=== PATIENT | female | born 1980 | race Caucasian/White ===

== ENCOUNTER → 2023-09-20 | Outpatient (CLI) | payer BC, SELFPAY ==
[2023-09-20 12:55] LABS: ALB/GLOB Ratio 0.8 RATIO (0.9-2.4); AST(SGOT) 108 U/L (15-37); Alanine Aminotransfer ALT/SGPT 81 U/L (13-56); Albumin, Serum 3.3 g/dL (3.2-5.0); Alkaline Phosphatase 151 U/L (45-117); Anion Gap 10 (5-15); BUN 10 mg/dL (7-18); BUN/Creat Ratio 11.9 RATIO (10-20); Calcium,Total 8.7 mg/dL (8.5-10.1); Chloride 104 mmol/L (98-107); Cholesterol 198 mg/dL (200); Creatinine, Serum 0.84 mg/dL (0.55-1.02); EST Glomerular Filtration Rate 79 mL/min (>60); Est Glom Filt Rate - Afr Amer 96 mL/min (>60); Globulin 4.4 g/dL (2.2-4.2); Glucose 116 mg/dL (74-106); High Density Lipoprotein 39 mg/dL; Potassium 3.8 mmol/L (3.5-5.1); Protein, Total 7.7 g/dL (6.4-8.2); Sodium Level 138 mmol/L (136-145); Thyroid Stim Hormone (TSH) 3.16 uIU/mL (0.358-3.74); Triglycerides 232 mg/dL; Very Low Density Lipoprotein 46 mg/dL (5-40)
[2023-09-20 13:08] LABS: Microalbumin,Random Urine 57.8 mg/L (NO RANGE EST.); Microalbumin:Creatinine Ratio 14.9 mg/g CRE (<30 mg/g CRE)
== END | disposition home or self-care (01) ==
LOC: BIMLAB 09:48
PROVIDERS: PCP Internal Medicine; Referring Provider Internal Medicine; Visit Provider Internal Medicine
DX: E11.65 Type 2 diabetes mellitus with hyperglycemia (principal); E78.2 Mixed hyperlipidemia; F32.9 Major depressive disorder, single episode, unspecified
CPT/HCPCS: 36415; 80053; 80061; 82043; 82570; 84443

== ENCOUNTER → 2024-09-25 | Outpatient (CLI) | payer BC, SELFPAY ==
[2024-09-25 15:36] LABS: Absolute Lymphocyte Count 1.91 X10^3/uL (0.83-4.51); Absolute Neutrophil Count 3.6 X10^3/uL (2.0-7.7); Basophil# 0.05 X10^3/uL; Basophil% 0.8 % (0-1); Eosinophil# 0.08 X10^3/uL; Eosinophils% 1.3 % (0-5); Hematocrit 40.7 % (37-47); Hemoglobin 12.9 g/dL (12.0-15.0); Lymphocyte # 1.91 X10^3/ul (0.83-4.51); Lymphocyte % 31.3 % (19-41); Mean Corp Hgb Conc 31.7 g/dL (32-36); Mean Corpuscular Hgb 26.9 pg (27.0-32.0); Mean Platelet Vol. 10.2 fl (6.2-12.0); Monocyte# 0.46 X10^3/uL; Monocyte% 7.5 % (0-10); NRBC Flagged by Analyzer 0 % (0-5); Neutrophil # 3.58 X10^3/uL (2.7-7.7); Neutrophil % 58.8 % (47-70); Platelet Count 334 K/mm3 (150-450); RBC Distribution Width CV 16.9 % (11.6-14.6); RBC Distribution Width SD 52.3 fl (35.1-43.9); Red Blood Count 4.79 M/mm3 (4.2-5.4); White Blood Count 6.1 K/mm3 (4.4-11.0)
[2024-09-25 16:26] LABS: ALB/GLOB Ratio 0.9 RATIO (0.9-2.4); AST(SGOT) 62 U/L (15-37); Alanine Aminotransfer ALT/SGPT 59 U/L (13-56); Albumin, Serum 3.7 g/dL (3.2-5.0); Alkaline Phosphatase 111 U/L (45-117); Anion Gap 7 (5-15); BUN 11 mg/dL (7-18); BUN/Creat Ratio 13.4 RATIO (10-20); Calcium,Total 8.7 mg/dL (8.5-10.1); Chloride 108 mmol/L (98-107); Cholesterol 208 mg/dL (200); Creatinine, Serum 0.82 mg/dL (0.55-1.02); EST Glomerular Filtration Rate 81 mL/min (>60); Est Glom Filt Rate - Afr Amer 98 mL/min (>60); Globulin 4.1 g/dL (2.2-4.2); Glucose 86 mg/dL (74-106); High Density Lipoprotein 62 mg/dL; Protein, Total 7.8 g/dL (6.4-8.2); Sodium Level 137 mmol/L (136-145); Triglycerides 145 mg/dL; Very Low Density Lipoprotein 29 mg/dL (5-40)
== END | disposition home or self-care (01) ==
LOC: BIMLAB 11:37
PROVIDERS: PCP Internal Medicine; Referring Provider Internal Medicine; Visit Provider Internal Medicine
DX: E11.9 Type 2 diabetes mellitus without complications (principal); F33.42 Major depressive disorder, recurrent, in full remission
CPT/HCPCS: 36415; 80053; 80061; 84443; 85025

== ENCOUNTER → 2025-04-14 | Outpatient (CLI) | payer OTHER, SELFPAY ==
--- OUTSIDE RECORDS SUMMARY | 2025-04-14 10:03 | XMS RPT_ITS | CCD ---
Author Organization [facility] Care Team Providers Care Developer Advocate Name Role Phone JARON HUBBARD DO Attending Unavailable PHYSICIAN, NONE Primary Care Unavailable PHYSICIAN, NONE Primary Care Physician Unavailab le Jaron Hubbard Attending Unavailable Vasyl, Yoal Primary Care Unavailable Jaron Hubbard Attending Unavailable Aurora, Yola Primary Care Unavailable Aurora, Yola Referring Unavailable Vasyl, Yola Primary Care Unavailable Vasyl, Yola Attending Unavailable Vasyl, Yola Referring Unavailable Vasyl, Yola Primary Care Unavailable Aurora, Yola Attending Unavailable Jaron Hubbard Attending Unavailable Aurora, Yola Primary Care Unavailable Vasyl, Yola Referring Unavailable Vasyl, Yola Primary Care Unavailable Aurora, Yola Attending Unavailable Jaron Hubbard Attending Unavailable Aurora, Yola Primary Care Unavailable Vasyl, Yola Referring Unavailable Aurora, Yola Primary Care Unavailable Vasyl, Yola Attending Unavailable Jimenez Wheatley Attending Unavailable Vasyl, Yola Referring Unavailable Aurora, Yola Primary Care Unavailable Problems Problem Classification Problem Date Documented Da te Episodic/Chronic Anxiety disorders (1 source) Anxiety disorder, unspecified; Translations: [Anxiety disorder, unspecified] Onset: 01-16-2025 Chronic Diabetes mellitus without complication (1 source) Type 2 diabetes mellitus without complications; Translations: [Type 2 diabetes mellitus without complications] Onset: 01-16-2025 Chronic Residual codes; unclassified (1 source) Insomnia, unspecified; Translations: [Insomnia, unspecified] Onset: 01-16-2025 Episodic Results Test Name Value Interpretation Reference Range Facility MR/BMS.BPon 01-16-2025 MR/BMS.BP [address], [address] [place], [place] [id number] OFFICE VISIT Date of Service: 01/16/25 MR#: [id number] Acct: [id number] Name: ISABEL HE Rep #: [id number] : 1980 Provider: Dr. Jaron Leavitt se, DO Age/Sex: 44/F [place] [facility] [facility] [place]: Signed Intake Vital Signs 09/25/24 09:45 09/25/24 10:41 01/16/25 07:17 Height 5 ft 1 in 5 ft 1 in 5 ft 1 in Weight: 199 lb 189 lb BMI 37.5 35.6 BP 132/82 H 143/103 H Blood Pressure Location Lt brachial Lt brachial Position Sitting Sitting Respiration 12 16 Pulse 89 90 Pulse Source Monitor Monitor Temp 97.1 F L Pulse Oximetry (%) 98 Oxygen Delivery Method room air BP Intake Visit Reasons: follow up Accompanied by: Self Allergies No Known Allergies Allergy (Verified 01/16/25 07:58) Medications ???Medication ???Instructions ???Recorded ???Confirmed ???Type ethynodiol diacetate-ethinyl tablet PO 03/29/23 01/16/25 Histor y estradiol 1 mg-35 mcg tablet blood-glucose meter (Accu-Chek #1 ea 09/20/23 01/16/25 Rx Guide Glucose Meter) blood sugar diagnostic (Accu-Chek #100 strips 01/04/24 01/16/25 Rx Guide test strips) lancets (Accu-Chek Softclix #100 ea 01/08/24 01/16/25 Rx Lancets) aripiprazole 5 mg tablet See Rx Instructions .Route 5 01/16/25 Rx .COMPLEX #90 tabs atorvastatin 10 mg tablet (Lipitor) 10 mg PO QHS #30 tabs 01/16/25 01/16/25 Rx bupropion HCl 150 mg 24 hr tablet, See Rx Instructions .Route 01/1601/16/25 Rx extended release .COMPLEX #90 tabs clonazepam 0.5 mg tablet 0.5 mg PO .COMPLEX 30 days #75 tab s 01/16/25 01/16/25 Rx lisinopril 40 mg tablet 40 mg PO DAILY #90 tabs 01/16/25 0 01/16/25 Rx omeprazole 40 mg capsule,delayed 40 mg PO DAILY #90 caps 01/16/25 0 01/16/25 Rx release tirzepatide 15 mg/0.5 mL 15 mg (0.5 mL) subcut QWEEK #6 mL 01/16/25 01/16/25 Rx subcutaneous pen injector zolpidem 10 mg tablet 10 mg PO QHS PRN sleep 30 days #30 01/16/25 01/16/25 Rx tabs PFSH Medical History Anxiety Type 2 diabetes mellitus Specific phobia MDD (major depressive disorder) Medication monitoring encounter H/O emotional problems Allergies Surgical History No significant past surgical history Family History Mother Diabetes Father Hypertension Aunt Cancer skin Grandfather Cancer skin Social History (Updated 09/25/24 @ 11:[address] Yola Fallon MD) household members: significant other current occupational status: employed current occupation: dual marketing director Smoking Status: Never smoker Electronic Cigarette Use: not used alcohol intake: current alcohol intake frequency: a few times a week details: weekly substance use type: does not use what type of physical activity do you participate in: none do you feel safe at home: Yes HPI History of Present Illness History provided by: patient HPI: Isabel He is a 44 year old female who presents today for follow up evaluation. Patient reports that she has been doing good. Has been doing great at new job. Has been doing largely well in regards to anxiety, but does still have intermittent symptoms. Specifically has when flying. Has not been having panic attacks but increased anxiety. Denies any significant depression. Sleep has been doing good. Denies SI/HI or AVH. Has been trying to lose weight with use of Mounjaro. Review of Systems Constitutional Denies: fever(s), chills, change in weight or fatigue Eyes Denies: change in vision or blurry vision Ears, Nose, Mouth, Throat Denies: throat pain, neck pain or change in hearing Cardiovascular Denies: chest pain, palpitations or dyspnea Respiratory Denies: dyspnea, cough or wheezing Gastrointestinal Denies: abdominal pain, nausea, vomiting, diarrhea or constipation Genitourinary Denies: dysuria or urinary frequency Musculoskeletal Denies: back pain, neck pain, joint pain or muscle weakness Integumentary/Sravanthi st Denies: rash or new lesions Neurological Denies: headache(s), dizziness or confusion Endocrine Denies: fatigue or excessive sweating Hematologic/Lympha tic Denies: easy bruising or easy bleeding Allergic/Immunolog ic Denies: wheezing Exam Mental Status Exam - Psych Appearance casually dressed and no apparent distress Attitude cooperative Activity/Motor Behavior MSE activity/motor behavior finding no adventitious movements Speech regular rate, regular volume and regular prosody Mood OK (Intermittent anxiety) Affect congruent Thought Process linear, logical and coherent Thought Content no delusions and no hallucinations Suicidal Ideation (more content not included)... Normal [facility] Internal Medicine Office Vis iton 01-15-2025 Internal Medicine Office Visit [facility] [address] [place] [address] [place] [address] OFFICE VISIT Date of Service: 01/16/25 MR#: [id number] Acct: [id number] Name: ISABEL HE Rep #: [id number] : 1980 Provider: Dr. Yola franco MD Age/Sex: 44/F [place] [facility] [place] Status: Signed Intake Vital Signs 09/25/24 10:41 01/16/25 07:17 01/16/25 08:08 Height 5 ft 1 in 5 ft 1 in 5 ft 1 in Weight: 192 lb BMI 36.2 BP 130/84 H Blood Pressure Location Lt brachial Position Sitting Respiration 16 Pulse 84 Pulse Source Monitor Temp 97 F L Temp Source Temporal Pulse Oximetry (%) 98 Oxygen Delivery Method room air Intake Visit Reasons: 5 M Chief Complaint: f/u Breast Buffer Required: No Is patient in pain?: No Allergies No Known Allergies Allergy (Verified 01/16/25 07:58) Medications ???Medication ???Instructions ???Recorded ???Confirmed ???Type ethynodiol diacetate-ethinyl tablet PO 03/29/23 01/16/25 Histor y estradiol 1 mg-35 mcg tablet blood-glucose meter (Accu-Chek #1 ea 09/20/23 01/16/25 Rx Guide Glucose Meter) blood sugar diagnostic (Accu-Chek #100 strips 01/04/24 01/16/25 Rx Guide test strips) lancets (Accu-Chek Softclix #100 ea 01/08/24 01/16/25 Rx Lancets) aripiprazole 5 mg tablet See Rx Instructions .Route 5 01/16/25 Rx .COMPLEX #90 tabs atorvastatin 10 mg tablet (Lipitor) 10 mg PO QHS #30 tabs 01/16/25 01/16/25 Rx bupropion HCl 150 mg 24 hr tablet, See Rx Instructions .Route 01/1601/16/25 Rx extended release .COMPLEX #90 tabs clonazepam 0.5 mg tablet 0.5 mg PO .COMPLEX 30 days #75 tab s 01/16/25 01/16/25 Rx lisinopril 40 mg tablet 40 mg PO DAILY #90 tabs 01/16/25 0 01/16/25 Rx omeprazole 40 mg capsule,delayed 40 mg PO DAILY #90 caps 01/16/25 0 01/16/25 Rx release tirzepatide 15 mg/0.5 mL 15 mg (0.5 mL) subcut QWEEK #6 mL 01/16/25 01/16/25 Rx subcutaneous pen injector zolpidem 10 mg tablet 10 mg PO QHS PRN sleep 30 days #30 01/16/25 01/16/25 Rx tabs Nurse's Note: Needs lisinopril refilled. [facility] Medical History Anxiety Type 2 diabetes mellitus Specific phobia MDD (major depressive disorder) Medication monitoring encounter H/O emotional problems Allergies Surgical History No significant past surgical history Family History Mother Diabetes Father Hypertension Aunt Cancer skin Grandfather Cancer skin Social History household members: significant other current occupational status: employed current occupation: dual marketing director Smoking Status: Never smoker Electronic Cigarette Use: not used alcohol intake: current alcohol intake frequency: a few times a week details: weekly substance use type: does not use what type of physical activity do you participate in: none do you feel safe at home: Yes HPI HPI Chief Complaint: f/u Details: ISABEL HE, is a 44 F who presents to the office today for a follow up. She is up to date on her routine blood work. She still hasn't done her mammogram, but plans on doing it. She previously declined a flu shot. She doesn't smoke and does need refills. She reports she has been eating healthy. She still isn't very active. She doesn't check her sugars at home. She reports that she has been doing well with her medication which was increased at her last office visit. She does her injection on Sundays. She has tried to get back to monitoring her carbohydrate and sugar intake. She still did not schedule her diabetic eye exam and doesn't see podiatry. The patient hasn't been checking her blood pressure at home. She has been out of her lisinopril for about a week, but was otherwise taking it as prescribed without problems. She doesn't really monitor her salt intake. The patient follows with psychiatry for her mental health. She reports her current medications do help. She denies any current concerns of depression or anxiety. She denies any thoughts of suicide. Since the patient was last seen, she was started on lipitor for elevated cholesterol readings. She reports that she never started it, however, reporting it was not at the pharmacy and she never followed up on it. She has no questions or concerns at this time. ROS Const Constitutional: Positive for weight change; No body ache, chills, excessive sweating, fatigue, fever(s), frequent falls, headache(s), snoring, weakness, sleep problems or change in appetite Eyes Eyes: No blurry vision, change in vision, eye pain or Light sensitivity ENT ENT: No abnormal hearing, ear or mastoid pain, tinnitus (more content not included)... Normal [facility] CBC W/Diff, Automatedon 11-2 Absolute Lymph 1.91 X10 3/uL Normal 0.83-4.51 [facility] Comment on above: Performed By: #### L 500.4100, L500.4050, L100.0100, L501.9520 #### [facility] [address] [place], [address] Absolute Neut 3.6 X10 3/uL Normal 2.0-7.7 [facility] Comment on above: Performed By: #### L 500.4100, L500.4050, L100.0100, L501.9520 #### [facility] [address] [place], [address] Basophils/100 WBC (Bld) 0.8 % Normal 0-1 [facility] Comment on above: Performed By: #### L 500.4100, L500.4050, L100.0100, L501.9520 #### [facility] [address] [place], [address] Eosinophils/100 WBC (Bld) 1.3 % Normal 0-5 [facility] Comment on above: Performed By: #### L 500.4100, L500.4050, L100.0100, [id number] #### [facility] [address] [place], [address] Erythrocyte distribution width (RBC) [Ratio] 16.9 % High 11.6-14.6 [facility] Comment on above: Performed By: #### L 500.4100, L500.4050, L100.0100, L501.9520 #### [facility] [address] [place], [address] Hematocrit (Bld) [Volume fraction] 40.7 % Normal 37-47 [facility] Comment on above: Performed By: #### L 500.4100, L500.4050, L100.0100, L501.9520 #### [facility] [address] [place], [address] Hemoglobin (Bld) [Mass/Vol] 12.9 g/dL Normal 12.0-15.0 [facility] Comment on above: Performed By: #### L 500.4100, L500.4050, L100.0100, L501.9520 #### [facility] [address] [place], [address] IG% 0.300 Normal 0.0-0.9 [facility] Comment on above: Result Comment: IG% - Immature Granulocytes (promyelocytes, myelocytes and metamyelocytes) > 1% indicates that a LEFT SHIFT is Present. Performed By: #### L 500.4100, L500.4050, L100.0100, L501.9520 #### [facility] [address] [place], [address] Lymphocytes/100 WBC (Bld) 31.3 % Normal 19-41 [facility] Comment on above: Performed By: #### L 500.4100, L500.4050, L100.0100, L501.9520 #### [facility] [address] [place], [address] MCH (RBC) [Entitic mass] 26.9 pg Low 27.0-32.0 [facility] Comment on above: Performed By: #### L 500.4100, L500.4050, L100.0100, L501.9520 #### [facility] [address] [place], [address] MCHC (RBC) [Mass/Vol] 31.7 g/dL Low 32-36 [facility] Comment on above: Performed By: #### L 500.4100, L500.4050, L100.0100, L501.9520 #### [facility] [address] [place], [address] MCV (RBC) [Entitic vol] 85.0 fL Normal 81-99 [facility] Comment on above: Performed By: #### L 500.4100, L500.4050, L100.0100, L501.9520 #### [facility] [address] [place], [address] Monocytes/100 WBC (Bld) 7.5 % Normal 0-10 [facility] Comment on above: Performed By: #### L 500.4100, L500.4050, L100.0100, L501.9520 #### [facility] [address] [place], [address] Neutrophils/100 WBC (Bld) 58.8 % Normal 47-70 [facility] Comment on above: Performed By: #### L 500.4100, L500.4050, L100.0100, L501.9520 #### [facility] [address] [place], [address] Nucleated RBC (Bld) [#/Vol] 0 10*3/uL Normal 0-5 [facility] Comment on above: Performed By: #### L 500.4100, L500.4050, L100.0100, [id number] #### [facility] [address] [place], [address] Platelet mean volume (Bld) [Entitic vol] 10.2 fL Normal 6.2-12.0 [facility] Comment on above: Performed By: #### L 500.4100, L500.4050, L100.0100, L501.9520 #### [facility] [address] [place], [address] Platelets (Bld) [#/Vol] 334 10*3/uL Normal 150-450 [facility] Comment on above: Performed By: #### L 500.4100, L500.4050, L100.0100, L501.9520 #### [facility] [address] [place], [address] RBC (Bld) [#/Vol] 4.79 10*6/uL Normal 4.2-5.4 [facility] Comment on above: Performed By: #### L 500.4100, L500.4050, L100.0100, L501.9520 #### [facility] [address] [place], [address] RDW SD 52.3 fl High 35.1-43.9 [facility] Comment on above: Performed By: #### L 500.4100, L500.4050, L100.0100, L501.9520 #### [facility] [address] [place], [address] WBC (Bld) [#/Vol] 6.1 10*3/uL Normal 4.4-11.0 [facility] Comment on above: Performed By: #### L 500.4100, L500.4050, L100.0100, L501.9520 #### [facility] [address] [place], [address] Comprehensive Metabolic [facility] 09-25-2024 Albumin [Mass/Vol] 3.7 g/dL Normal 3.2-5.0 [facility] Comment on above: Performed By: #### L 500.4100, L500.4050, L100.0100, L501.9520 #### [facility] [address] [place], [address] Albumin/Globulin [Mass ratio] 0.9 {ratio} Normal 0.9-2.4 [facility] Comment on above: Performed By: #### L 500.4100, L500.4050, L100.0100, L501.9520 #### [facility] [address] [place], [address] ALK P 111 U/L Normal 45-117 [facility] Comment on above: Performed By: #### L 500.4100, L500.4050, L100.0100, L501.9520 #### [facility] [address] [place], [address] ALT [Catalytic activity/Vol] 59 U/L High 13-56 [facility] Comment on above: Performed By: #### L 500.4100, L500.4050, L100.0100, L501.9520 #### [facility] [address] [place], [address] AST [Catalytic activity/Vol] 62 U/L High 15-37 [facility] Comment on above: Performed By: #### L 500.4100, L500.4050, L100.0100, L501.9520 #### [facility] [address] [place], [address] Bilirubin [Mass/Vol] 0.40 mg/dL Normal 0.20-1.00 [facility] Comment on above: Result Comment: For patients on eltrombopag therapy, use of Dimension [place] TBIL is not recommended. Performed By: #### L 500.4100, L500.4050, L100.0100, L501.9520 #### [facility] [address] [place], [address] BUN/CRE 13.4 RATIO Normal 10-20 [facility] Comment on above: Performed By: #### L 500.4100, L500.4050, L100.0100, L501.9520 #### [facility] [address] [place], [address] CA,Total 8.7 mg/dL Normal 8.5-10.1 [facility] Comment on above: Performed By: #### L 500.4100, L500.4050, L100.0100, L501.9520 #### [facility] [address] [place], [address] Chloride [Moles/Vol] 108 mmol/L High 98-107 [facility] Comment on above: Performed By: #### L 500.4100, L500.4050, L100.0100, L501.9520 #### [facility] [address] [place], [address] CO2 [Moles/Vol] 22.0 mmol/L Normal 21.0-32.0 [facility] Comment on above: Performed By: #### L 500.4100, L500.4050, L100.0100, L501.9520 #### [facility] [address] [place], [address] Creatinine [Mass/Vol] 0.82 mg/dL Normal 0.55-1.02 [facility] Comment on above: Result Comment: The validity of the calculated GFR GFRAA in patients over 70 years has not been determined. Clinical correlation is essential. Performed By: #### L 500.4100, L500.4050, L100.0100, L501.9520 #### [facility] [address] [place], [address] EST GFR - AA 98 mL/min Normal >60 [facility] Comment on above: Result Comment: Afri can [place]i GFR Calc Performed By: #### L 500.4100, L500.4050, L100.0100, L501.9520 #### [facility] [address] [place], [address] GAP 7 Normal 5-15 [facility] Comment on above: Performed By: #### L 500.4100, L500.4050, L100.0100, L501.9520 #### [facility] [address] [place], [address] GFR/1.73 sq M.predicted among non-blacks MDRD (S/P/Bld) [Vol rate/Area] 81 mL/min/{1.73_m2} Normal >60 [facility] Comment on above: Result Comment: Non- GFR Calc Performed By: #### L 500.4100, L500.4050, L100.0100, L501.9520 #### [facility] [address] [place], [address] Globulin (S) [Mass/Vol] 4.1 g/dL Normal 2.2-4.2 [facility] Comment on above: Performed By: #### L 500.4100, L500.4050, L100.0100, L501.9520 #### [facility] [address] [place], [address] Glucose [Mass/Vol] 86 mg/dL Normal 74-106 [facility] Comment on above: Performed By: #### L 500.4100, L500.4050, L100.0100, L501.9520 #### [facility] [address] [place], [address] Potassium [Moles/Vol] 4.0 mmol/L Normal 3.5-5.1 [facility] Comment on above: Performed By: #### L 500.4100, L500.4050, L100.0100, L501.9520 #### [facility] [address] [place], [address] Sodium [Moles/Vol] 137 mmol/L Normal 136-145 [facility] Comment on above: Performed By: #### L 500.4100, L500.4050, L100.0100, L501.9520 #### [facility] [address] [place], [address] T PROT 7.8 g/dL Normal 6.4-8.2 [facility] Comment on above: Performed By: #### L 500.4100, L500.4050, L100.0100, L501.9520 #### [facility] [address] [place], [address] Urea nitrogen [Mass/Vol] 11 mg/dL Normal 7-18 [facility] Comment on above: Performed By: #### L 500.4100, L500.4050, L100.0100, L501.9520 #### [facility] [address] [place], [address] Lipid Profileon 09-25-2024 Cholesterol [Mass/Vol] 208 mg/dL High 200 [facility] Comment on above: Result Comment: <200 mg/dL Desirable 200-240 mg/dL Borderline >240 mg/dL High Risk Performed By: #### L 500.4100, L500.4050, L100.0100, L501.9520 #### [facility] [address] [place], [address] Cholesterol in HDL [Mass/Vol] 62 mg/dL Normal [facility] Comment on above: Result Comment: The drugs N-Acetylcysteine and Metamizole may falsely depress this assay. Reference Range HDL <40 mg/dL Low HDL Cholesterol HDL >or= 60 mg/dL High HDL Cholesterol Performed By: #### L 500.4100, L500.4050, L100.0100, L501.9520 #### [facility] [address] [place], [address] Cholesterol in LDL [Mass/Vol] 117 mg/dL Normal 0-130 [facility] Comment on above: Performed By: #### L 500.4100, L500.4050, L100.0100, L501.9520 #### [facility] [address] [place], [address] Cholesterol in VLDL [Mass/Vol] 29 mg/dL Normal 5-40 [facility] Comment on above: Performed By: #### L 500.4100, L500.4050, L100.0100, L501.9520 #### [facility] [address] [place], [address] Triglyceride [Mass/Vol] 145 mg/dL Normal [facility] Comment on above: Result Comment: The drugs N-Acetylcysteine and Metamizole may falsely depress this assay. Serum Triglycerides Reference Interval Normal <150 mg/dL Borderline high 150 - 199 mg/dL High 200 - 499 mg/dL Very High > or = 500 mg/dL Performed By: #### L 500.4100, L500.4050, L100.0100, L501.9520 #### [facility] [address] [place], [address] MR/BMS.BPon 09-25-2024 MR/BMS.BP [address], [address] [place] [address] OFFICE VISIT Date of Service: 09/25/24 MR#: [id number] Acct: [id number] Name: ISABEL HE Rep #: [id number] : 1980 Provider: Dr. Jaron Leavitt se, DO Age/Sex: 44/F [place] [facility] [place] Status: Signed Intake Vital Signs 06/12/24 07:29 06/12/24 08:53 09/25/24 09:45 Height 5 ft 1 in 5 ft 1 in 5 ft 1 in BP 150/105 H Blood Pressure Location Rt brachial Position Sitting Respiration 16 Pulse 92 Pulse Source Monitor Comment Patient has been out of BP med x 1 week BP Intake Visit Reasons: 3 M FU Accompanied by: Self Allergies No Known Allergies Allergy (Verified 09/25/24 10:36) Medications ???Medication ???Instructions ???Recorded ???Confirmed ???Type ethynodiol diacetate-ethinyl tablet PO 03/29/23 09/25/24 History estradiol 1 mg-35 mcg tablet omeprazole 40 mg capsule,delayed 40 mg PO DAILY 03/29/23 09/25/24 History release blood-glucose meter (Accu-Chek #1 ea 09/20/23 09/25/24 Rx Guide Glucose Meter) blood sugar diagnostic (Accu-Chek #100 strips 01/04/24 09/25/24 Rx Guide test strips) lancets (Accu-Chek Softclix #100 ea 01/08/24 09/25/24 Rx Lancets) lisinopril 40 mg tablet 40 mg PO DAILY #90 tabs 06/12/24 09/25/24 Rx aripiprazole 5 mg tablet See Rx Instructions .Route 09/25/24 09/25/24 Rx .COMPLEX #90 tabs bupropion HCl 150 mg 24 hr tablet, See Rx Instructions .Route 09/25/24 09/25/24 Rx extended release .COMPLEX #90 tabs clonazepam 0.5 mg tablet 0.5 mg PO BID 30 days #60 tabs 09/25/24 09/25/24 Rx tirzepatide 12.5 mg/0.5 mL 12.5 mg (0.5 mL) subcut QWEEK #2 mL 09/25/24 09/25/24 Rx subcutaneous pen injector zolpidem 10 mg tablet 10 mg PO QHS PRN sleep 30 days #30 09/25/24 09/25/24 Rx tabs PFSH Medical History Anxiety Type 2 diabetes mellitus Specific phobia MDD (major depressive disorder) Medication monitoring encounter H/O emotional problems Allergies Surgical History No significant past surgical history Family History Mother Diabetes Father Hypertension Aunt Cancer skin Grandfather Cancer skin Social History (Updated 09/25/24 @ 11:[address] Yola Fallon MD) household members: significant other current occupational status: employed current occupation: dual marketing director Smoking Status: Never smoker Electronic Cigarette Use: not used alcohol intake: current alcohol intake frequency: a few times a week details: weekly substance use type: does not use what type of physical activity do you participate in: none do you feel safe at home: Yes HPI History of Present Illness History provided by: patient HPI: Isabel He is a 44 year old female who presents today for follow up evaluation. Patient reports that she has been doing much better than she had been. Has found that clonazepam has been much more effective than xanax in controlling anxiety. Reports that after the first or second dose felt that her anxiety was significantly improved. Did quit her job on July 30 and found another job after about a week. 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 Relationship has been doing very well. Denies SI/HI or AVH. Review of Systems Constitutional Denies: fever(s), chills, change in weight or fatigue Eyes Denies: change in vision or blurry vision Ears, Nose, Mouth, Throat Denies: throat pain, neck pain or change in hearing Cardiovascular Denies: chest pain, palpitations or dyspnea Respiratory Denies: dyspnea, cough or wheezing Gastrointestinal Denies: abdominal pain, nausea, vomiting, diarrhea or constipation Genitourinary Denies: dysuria or urinary frequency Musculoskeletal Denies: back pain, neck pain, joint pain or muscle weakness Integumentary/[place] st Denies: rash or new lesions Neurological Denies: headache(s), dizziness or confusion Endocrine Denies: fatigue or excessive sweating Hematologic/Lympha tic Denies: easy bruising or easy bleeding Allergic/Immunolog ic Denies: wheezing Exam Mental Status Exam - Psych Appearance casually dressed and no apparent distress Attitude cooperative Activity/Motor Behavior MSE activity/motor behavior finding no adventitious movements Speech regular rate, regular volume and regular prosody Mood euythmic (Much better) Affect congruent Thought Process linear, logical and coherent Thought Content no delusions and no hallucinations Suicidal Ideation none Homicidal Ideation none Attention intact Concentration intact Sensorium/Orientat ion awake, alert and oriented x3 Memory/Cognition other (appropriate for (more content not included)... Normal [facility] Thyroid Stim Hormone (TSH)on 09-25-2024 TSH 1.380 uIU/mL Normal 0.358-3.740 [facility] Comment on above: Performed By: #### L 500.4100, L500.4050, L100.0100, L501.9520 #### [facility] [address] [place], [address] Internal Medicine Office Vis iton 09-24-2024 Internal Medicine Office Visit [facility] [address] [place] [address] [place] [address] OFFICE VISIT Date of Service: 09/25/24 MR#: [id number] Acct: [id number] Name: ISABEL HE Rep #: [id number] : 1980 Provider: Dr. Yola franco MD Age/Sex: 44/F [place] [facility] [place]: Signed Intake Vital Signs 06/12/24 08:53 09/25/24 09:45 09/25/24 10:41 Height 5 ft 1 in 5 ft 1 in 5 ft 1 in Weight: 199 lb BMI 37.5 BP 132/82 H Blood Pressure Location Lt brachial Position Sitting Respiration 12 Pulse 89 Pulse Source Monitor Temp 97.1 F L Temp Source Temporal Pulse Oximetry (%) 98 Oxygen Delivery Method room air Intake Visit Reasons: 3 m fu Chief Complaint: f/u Breast Buffer Required: No Accompanied by: Self Is patient in pain?: No Allergies No Known Allergies Allergy (Verified 09/25/24 10:36) Medications ???Medication ???Instructions ???Recorded ???Confirmed ???Type ethynodiol diacetate-ethinyl tablet PO 03/29/23 09/25/24 History estradiol 1 mg-35 mcg tablet omeprazole 40 mg capsule,delayed 40 mg PO DAILY 03/29/23 09/25/24 History release blood-glucose meter (Accu-Chek #1 ea 09/20/23 09/25/24 Rx Guide Glucose Meter) blood sugar diagnostic (Accu-Chek #100 strips 01/04/24 09/25/24 Rx Guide test strips) lancets (Accu-Chek Softclix #100 ea 01/08/24 09/25/24 Rx Lancets) lisinopril 40 mg tablet 40 mg PO DAILY #90 tabs 06/12/24 09/25/24 Rx aripiprazole 5 mg tablet See Rx Instructions .Route 09/25/24 09/25/24 Rx .COMPLEX #90 tabs bupropion HCl 150 mg 24 hr tablet, See Rx Instructions .Route 09/25/24 09/25/24 Rx extended release .COMPLEX #90 tabs clonazepam 0.5 mg tablet 0.5 mg PO BID 30 days #60 tabs 09/25/24 09/25/24 Rx tirzepatide 12.5 mg/0.5 mL 12.5 mg (0.5 mL) subcut QWEEK #2 mL 09/25/24 09/25/24 Rx subcutaneous pen injector zolpidem 10 mg tablet 10 mg PO QHS PRN sleep 30 days #30 09/25/24 09/25/24 Rx tabs PFSH Medical History Anxiety Type 2 diabetes mellitus Specific phobia MDD (major depressive disorder) Medication monitoring encounter H/O emotional problems Allergies Surgical History No significant past surgical history Family History Mother Diabetes Father Hypertension Aunt Cancer skin Grandfather Cancer skin Social History (Updated 09/25/24 @ 11:[address] Yola Fallon MD) household members: significant other current occupational status: employed current occupation: dual marketing director Smoking Status: Never smoker Electronic Cigarette Use: not used alcohol intake: current alcohol intake frequency: a few times a week details: weekly substance use type: does not use what type of physical activity do you participate in: none do you feel safe at home: Yes HPI HPI Chief Complaint: f/u Details: ISABEL HE, is a 44 F who presents to the office today for a follow up. She still hasn't done the blood work as previously ordered. She is due for a mammogram. She doesn't want her flu shot. She doesn't smoke and does need refills. She reports she hasn't been eating all that well recently due to a job change and hasn't been very active. She doesn't check her sugars at home. She reports that she has been doing well with her medication which was increased at her last office visit. She does her injection on Sundays. She has tried to get back to monitoring her carbohydrate and sugar intake. She still did not scheduled her diabetic eye exam and doesn't see podiatry. The patient hasn't been checking her blood pressure at home. She states she has been without her lisinopril for about a week and a half. She doesn't really monitor her salt intake. The patient follows with psychiatry for her mental health. She reports her current medications do help. She denies any current concerns of depression or anxiety. She denies any thoughts of suicid e. She has no questions or concerns at this time. ROS Const Constitutional: No body ache, chills, excessive sweating, fatigue, fever(s), frequent falls, headache(s), snoring, weakness, weight change or change in appetite Eyes Eyes: No blurry vision, change in vision, eye pain or Light sensitivity ENT ENT: No abnormal hearing, ear or mastoid pain, tinnitus, nasal congestion, headache(s), neck pain or sore throat Resp Respiratory: No cough, shortness of breath, snoring or wheezing Cardio Cardiology: No chest pain at rest, chest pain with exertion, excessive sweating, dyspnea on exertion, lightheadedness, orthopnea, palpitations or other (no leg swelling) Gastro GI: No abdominal pain, change in bowel habits, constipation, cramping, diarrhea, nausea/dyspepsia or (more content not included)... Normal [facility] Internal Medicine Office Vis iton 06-12-2024 Internal Medicine Office Visit [facility] [address] [place] [address] [place] [address] OFFICE VISIT Date of Service: 06/12/24 MR#: [id number] Acct: [id number] Name: ISABEL HE Rep #: [id number] : 1980 Provider: JE Pabon Age/Sex: 44/F [place] [facility] [place] Status: Signed Intake Vital Signs 09/20/23 12:55 06/12/24 07:29 06/12/24 08:53 Height 5 ft 1 in 5 ft 1 in 5 ft 1 in Weight: 200 lb BMI 37.8 BP 173/110 H 138/86 H Blood Pressure Location Rt brachial Lt brachial Position Sitting Sitting Respiration 14 Pulse 85 82 Pulse Source Monitor Monitor Temp 98.6 F Temp Source Temporal Pulse Oximetry (%) 98 Oxygen Delivery Method room air Intake Visit Reasons: ACUTE DIABETES FU-OK PER DR FALLON Chief Complaint: f/u Breast Buffer Required: No Is patient in pain?: No Allergies No Known Allergies Allergy (Verified 06/12/24 08:43) Medications ???Medication ???Instructions ???Recorded ???Confirmed ???Type ethynodiol diacetate-ethinyl tablet PO 03/29/23 06/12/24 History estradiol 1 mg-35 mcg tablet omeprazole 40 mg capsule,delayed 40 mg PO DAILY 03/29/23 06/12/24 History release blood-glucose meter (Accu-Chek #1 ea 09/20/23 06/12/24 Rx Guide Glucose Meter) blood sugar diagnostic (Accu-Chek #100 strips 01/04/24 06/12/24 Rx Guide test strips) lancets (Accu-Chek Softclix #100 ea 01/08/24 06/12/24 Rx Lancets) aripiprazole 5 mg tablet See Rx Instructions .Route 03/26/24 06/12/24 Rx .COMPLEX #90 tabs bupropion HCl 150 mg 24 hr tablet, See Rx Instructions .Route 03/26/24 06/12/24 Rx extended release .COMPLEX #90 tabs clonazepam 0.5 mg tablet 0.5 mg PO BID 30 days #60 tabs 06/12/24 06/12/24 Rx lisinopril 40 mg tablet 40 mg PO DAILY #90 tabs 06/12/24 06/12/24 Rx tirzepatide 7.5 mg/0.5 mL 7.5 mg (0.5 mL) subcut QWEEK #2 mL 06/12/24 06/12/24 Rx subcutaneous pen injector zolpidem 10 mg tablet 10 mg PO QHS PRN sleep 30 days #30 06/12/24 06/12/24 Rx tabs Nurse's Note: States she has been off of bp meds for over a month it got sent to [place], and she lives in [place] she did not transfer it. Needs a refill to go to [facility] in [place] today. Also needing omeprazole sent there today. [facility] Medical History (Updated 06/12/24 @ 09:33 by Jimenez WOOTEN, PA) Anxiety Type 2 diabetes mellitus Specific phobia MDD (major depressive disorder) Medication monitoring encounter H/O emotional problems Allergies Surgical History No significant past surgical history Family History Mother Diabetes Father Hypertension Aunt Cancer skin Grandfather Cancer skin Social History household members: significant other current occupational status: employed current occupation: regional clinical director of sales for [employer] Smoking Status: Never smoker Electronic Cigarette Use: not used alcohol intake: current alcohol intake frequency: a few times a week details: weekly substance use type: does not use what type of physical activity do you participate in: none do you feel safe at home: Yes HPI HPI Chief Complaint: f/u Details: ISABEL HE, is a 44 F who presents to the office today for f/u on her diabetes. She states that she has done a lot of changes in the past. Initially cut out all of her pop and has been drinking lots of water and iced tea (unsweetened). She does not drink coffee. She states that she cut out fast food although when she travels a lot she has been having a little more fast food again. She is not currently getting regular exercise due to time constraints with work. The mounjaro definitely has helped decrease her appetite resulting in decreased caloric intake. She does though stat that she has gained 7-10 pounds the past few months. She states that she has not eaten quite as good but doesn't feel like it should be that much of a weight increase. She would like to see about increasing her dose. To this point patient she has not had any side effects or evidence of intolerance. She denies nausea, vomiting, constipation, abdominal pains / cramping, headache, dizziness, myalgias, or fatigue. Patient has continued to take omeprazole which she states she has been on her whole life. She has tried to get off of this several times only to have significant reflux issues thus getting right back on it. She does not have any problems if she stays on the medication. She states that she continues to see psychiatrist regarding her mental health. She actually has been off of her medication for a little bit as she missed an appointment at the same time she has an appointment and is set to refill her medications very soon. She states t (more content not included)... Normal [facility] MR/BMS.BPon 06-12-2024 MR/BMS.BP [facility] [address], [address] [place] [id number] OFFICE VISIT Date of Service: 06/12/24 MR#: [id number] Acct: [id number] Name: ISABEL HE Rep #: [id number] : 1980 Provider: Dr. Jaron Leavitt se, DO Age/Sex: 44/F [place] [facility] [place] Status: Signed Intake Vital Signs 09/20/23 12:55 06/12/24 07:25 06/12/24 07:29 Height 5 ft 1 in 5 ft 1 in 5 ft 1 in BP 159/92 H 173/110 H Blood Pressure Location Lt brachial Rt brachial Position Sitting Sitting Pulse 82 85 Pulse Source Monitor Monitor BP Intake Visit Reasons: follow up Breast Buffer Required: No Accompanied by: Self Is patient in pain?: No Allergies No Known Allergies Allergy (Verified 06/12/24 08:43) Medications ???Medication ???Instructions ???Recorded ???Confirmed ???Type ethynodiol diacetate-ethinyl tablet PO 03/29/23 06/12/24 History estradiol 1 mg-35 mcg tablet omeprazole 40 mg capsule,delayed 40 mg PO DAILY 03/29/23 06/12/24 History release blood-glucose meter (Accu-Chek #1 ea 09/20/23 06/12/24 Rx Guide Glucose Meter) blood sugar diagnostic (Accu-Chek #100 strips 01/04/24 06/12/24 Rx Guide test strips) lancets (Accu-Chek Softclix #100 ea 01/08/24 06/12/24 Rx Lancets) aripiprazole 5 mg tablet See Rx Instructions .Route 03/26/24 06/12/24 Rx .COMPLEX #90 tabs bupropion HCl 150 mg 24 hr tablet, See Rx Instructions .Route 03/26/24 06/12/24 Rx extended release .COMPLEX #90 tabs clonazepam 0.5 mg tablet 0.5 mg PO BID 30 days #60 tabs 06/12/24 06/12/24 Rx lisinopril 40 mg tablet 40 mg PO DAILY #90 tabs 06/12/24 06/12/24 Rx tirzepatide 7.5 mg/0.5 mL 7.5 mg (0.5 mL) subcut QWEEK #2 mL 06/12/24 06/12/24 Rx subcutaneous pen injector zolpidem 10 mg tablet 10 mg PO QHS PRN sleep 30 days #30 06/12/24 06/12/24 Rx tabs Current gender identity: female Nurse's Note: Presents to the office today for follow up. Meron reports that she has been out of all her medications for 1 month. [facility] Medical History (Updated 06/12/24 @ 09:[address] Jaron Hubbard DO) Anxiety Type 2 diabetes mellitus Specific phobia MDD (major depressive disorder) Medication monitoring encounter H/O emotional problems Allergies Surgical History No significant past surgical history Family History Mother Diabetes Father Hypertension Aunt Cancer skin Grandfather Cancer skin Social History household members: significant other current occupational status: employed current occupation: regional clinical director of [employer] Smoking Status: Never smoker Electronic Cigarette Use: not used alcohol intake: current alcohol intake frequency: a few times a week details: weekly substance use type: does not use what type of physical activity do you participate in: none do you feel safe at home: Yes HPI History of Present Illness History provided by: patient HPI: Isabel He is a 44 year old female who presents today for follow up evaluation. Has been having some difficulty with sleeping. Not only because of having difficulty getting Ambien but also just idiopathic. This had started around March. Job has been somewhat stressful as they changed a lot of their processes which affected her. 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 Has been working much longer hours to make up for coworkers being terminated. Has been taking doxepin but finds that it is not nearly as beneficial as the Ambien has been. Family and home life has overall been good. Has been having some mild panic attacks and worsening anxiety in recent past. Waking up with significant anxious symptoms. Initially thought she was having some cognitive symptoms, but realized it was more so anxiety related. Has been taking about 1/2 xanax every day for the last two weeks secondary to these symptoms. Continues to take Wellbutrin and aripiprazole and feels like it treats her depressive symptoms well. Review of Systems Constitutional Reports: change in sleep pattern; Denies: fever(s), chills, change in weight or fatigue Eyes Denies: change in vision or blurry vision Ears, Nose, Mouth, Throat Denies: throat pain, neck pain or change in hearing Cardiovascular Denies: chest pain, palpitations or dyspnea Respiratory Denies: dyspnea, cough or wheezing Gastrointestinal Denies: abdominal pain, nausea, vomiting, diarrhea or constipation Genitourinary Denies: dysuria or urinary frequency Musculoskeletal Denies: back pain, neck pain, joint pain or muscle weakness Integumentary/[place] st Denies: rash or new lesions Neurological Denies: headache(s), dizziness or confusion Endocrine Denies: fat (more content not included)... Normal [facility] .Auto Diffon 03-30-2023 Basophil, Absolute 0.0 10 3/mcL Normal 0.0-0.2 On license of [facility] ([place]) Comment on above: Performed By: #### C HOL, CBC, GFR, A1C, ANEU, CMP, ADIFF #### [address] [address] Basophils/100 WBC (Bld) 0.7 % Normal 0.0-2.5 [facility] ([place]) Comment on above: Performed By: #### C HOL, CBC, GFR, A1C, ANEU, CMP, ADIFF #### [address] [address] Eosinophil, Absolute 0.1 10 3/mcL Normal 0.0-0.4 [facility] ([place]) Comment on above: Performed By: #### C HOL, CBC, GFR, A1C, ANEU, CMP, ADIFF #### [address] [address] Eosinophils/100 WBC (Bld) 2.1 % Normal 0.0-7.0 [facility] ([place]) Comment on above: Performed By: #### C HOL, CBC, GFR, A1C, ANEU, CMP, ADIFF #### [address] [address] Lymphocyte, Absolute 1.7 10 3/mcL Normal 0.8-3.9 [facility] ([place]) Comment on above: Performed By: #### C HOL, CBC, GFR, A1C, ANEU, CMP, ADIFF #### [address] [address] Lymphocytes/100 WBC (Bld) 28.6 % Normal 10.0-50.0 [facility] ([place]) Comment on above: Performed By: #### C HOL, CBC, GFR, A1C, ANEU, CMP, ADIFF #### [address] [address] Monocyte, Absolute 0.4 10 3/mcL Normal 0.2-1.0 On license of [facility] ([place]) Comment on above: Performed By: #### C HOL, CBC, GFR, A1C, ANEU, CMP, ADIFF #### [address] [address] Monocytes/100 WBC (Bld) 7.7 % Normal 1.7-13.0 [facility] ([place]) Comment on above: Performed By: #### C HOL, CBC, GFR, A1C, ANEU, CMP, ADIFF #### [address] [address] Neutrophils/100 WBC (Bld) 60.9 % Normal 37.0-80.0 [facility] ([place]) Comment on above: Performed By: #### C HOL, CBC, GFR, A1C, ANEU, CMP, ADIFF #### [address] [address] .GFRon 03-30-2023 GFR Non- 86 ml/min/1.73sqm Normal [facility] ([place]) Comment on above: Result Comment: GFR Population mean for , Non- Americans Ages 20-29 = 116 mL/min/1.73 sq.m. Ages 30-39 = 107 mL/min/1.73 sq.m. Ages 40-49 = 99 mL/min/1.73 sq.m. Ages 50-59 = 93 mL/min/1.73 sq.m. Ages 60-69 = 85 mL/min/1.73 sq.m. Ages 70+ = 75 mL/min/1.73 sq.m. Chronic Kidney Disease: Less than 60 mL/min/1.73 square meters End Stage Renal Disease: Less than 15 mL/min/1.73 square meters Performed By: #### C HOL, CBC, GFR, A1C, ANEU, CMP, ADIFF #### [address] [address] GFR 105 ml/min/1.73sqm Normal [facility] ([place]) Comment on above: Result Comment: GFR Population mean for , Non- Americans Ages 20-29 = 116 mL/min/1.73 sq.m. Ages 30-39 = 107 mL/min/1.73 sq.m. Ages 40-49 = 99 mL/min/1.73 sq.m. Ages 50-59 = 93 mL/min/1.73 sq.m. Ages 60-69 = 85 mL/min/1.73 sq.m. Ages 70+ = 75 mL/min/1.73 sq.m. Chronic Kidney Disease: Less than 60 mL/min/1.73 square meters End Stage Renal Disease: Less than 15 mL/min/1.73 square meters Performed By: #### C HOL, CBC, GFR, A1C, ANEU, CMP, ADIFF #### [address] [address] .NEUABSon 03-30-2023 Neutrophil, Absolute 3.5 10 3/mcL Normal 2.9-6.2 [facility] ([place]) Comment on above: Performed By: #### C HOL, CBC, GFR, A1C, ANEU, CMP, ADIFF #### [address] [address] A1Con 03-30-2023 HbA1c (Bld) [Mass fraction] 10.2 % High 4.3-6.4 [facility] ([place]) Comment on above: Performed By: #### C HOL, CBC, GFR, A1C, ANEU, CMP, ADIFF #### [address] [address] CBCon 03-30-2023 Erythrocyte distribution width (RBC) [Ratio] 16.6 % High 11.5-14.5 [facility] ([place]) Comment on above: Performed By: #### C HOL, CBC, GFR, A1C, ANEU, CMP, ADIFF #### [address] [address] Hematocrit (Bld) [Volume fraction] 33.1 % Low 37.0-47.0 [facility] ([place]) Comment on above: Performed By: #### C HOL, CBC, GFR, A1C, ANEU, CMP, ADIFF #### [address] [address] Hgb 10.7 G/dL Low 12.0-16.0 [facility] ([place]) Comment on above: Performed By: #### C HOL, CBC, GFR, A1C, ANEU, CMP, ADIFF #### [address] [address] MCH (RBC) [Entitic mass] 24.9 pg Low 27.0-31.2 [facility] ([place]) Comment on above: Performed By: #### C HOL, CBC, GFR, A1C, ANEU, CMP, ADIFF #### [address] [address] MCHC 32.4 G/dL Low 33.0-37.0 [facility] ([place]) Comment on above: Performed By: #### C HOL, CBC, GFR, A1C, ANEU, CMP, ADIFF #### [address] [address] MCV (RBC) [Entitic vol] 76.8 fL Low 80.0-94.0 [facility] ([place]) Comment on above: Performed By: #### C HOL, CBC, GFR, A1C, ANEU, CMP, ADIFF #### [address] [address] Platelet 275 10 3/mcL Normal 130-400 [facility] ([place]) Comment on above: Performed By: #### C HOL, CBC, GFR, A1C, ANEU, CMP, ADIFF #### [address] [address] Platelet mean volume (Bld) [Entitic vol] 7.7 fL Normal 7.4-10.4 [facility] ([place]) Comment on above: Performed By: #### C HOL, CBC, GFR, A1C, ANEU, CMP, ADIFF #### [address] [address] RBC 4.31 10 6/mcL Normal 4.20-5.40 [facility] ([place]) Comment on above: Performed By: #### C HOL, CBC, GFR, A1C, ANEU, CMP, ADIFF #### [address] [address] WBC 5.8 10 3/mcL Normal 4.6-10.8 [facility] ([place]) Comment on above: Performed By: #### C HOL, CBC, GFR, A1C, ANEU, CMP, ADIFF #### [address] [address] CHOLon 03-30-2023 Cholesterol [Mass/Vol] 234 mg/dL High 0-200 [facility] ([place]) Comment on above: Result Comment: Chol esterol Reference Interval: Less than 200 Desirable 200-239 Borderline high risk 240 and above High risk Performed By: #### C HOL, CBC, GFR, A1C, ANEU, CMP, ADIFF #### [address] [address] CMPon 03-30-2023 Albumin Level 3.5 G/dL Normal 3.5-5.0 [facility] ([place]) Comment on above: Performed By: #### C HOL, CBC, GFR, A1C, ANEU, CMP, ADIFF #### [address] [address] Albumin/Globulin [Mass ratio] 0.9 {ratio} Low 1.1-2.5 [facility]) Comment on above: Performed By: #### C HOL, CBC, GFR, A1C, ANEU, CMP, ADIFF #### [address] [address] ALP [Catalytic activity/Vol] 204 U/L High 40-135 [facility] ([place]) Comment on above: Performed By: #### C HOL, CBC, GFR, A1C, ANEU, CMP, ADIFF #### [address] [address] ALT [Catalytic activity/Vol] 274 U/L High 14-59 [facility] ([place]) Comment on above: Performed By: #### C HOL, CBC, GFR, A1C, ANEU, CMP, ADIFF #### [address] [address] AST [Catalytic activity/Vol] 420 U/L High 10-40 [facility] ([place]) Comment on above: Performed By: #### C HOL, CBC, GFR, A1C, ANEU, CMP, ADIFF #### [address] [address] Bili Total 0.6 mg/dL Normal 0.2-1.0 [facility] ([place]) Comment on above: Result Comment: Use of this assay is not recommended for patients undergoing treatment with eltrombopag due to the potential for falsely elevated results. Performed By: #### C HOL, CBC, GFR, A1C, ANEU, CMP, ADIFF #### [address] [address] BUN/Creatinine Ratio 7 ratio Normal 7-27 On license of [facility] ([place]) Comment on above: Performed By: #### C HOL, CBC, GFR, A1C, ANEU, CMP, ADIFF #### [address] [address] Calcium [Mass/Vol] 9.0 mg/dL Normal 8.4-10.2 [facility] ([place]) Comment on above: Performed By: #### C HOL, CBC, GFR, A1C, ANEU, CMP, ADIFF #### [address] [address] Chloride [Moles/Vol] 100 mmol/L Normal 98-107 On license of [facility] ([place]) Comment on above: Performed By: #### C HOL, CBC, GFR, A1C, ANEU, CMP, ADIFF #### [address] [address] CO2 [Moles/Vol] 27 mmol/L Normal 22-29 [facility] ([place]) Comment on above: Performed By: #### C HOL, CBC, GFR, A1C, ANEU, CMP, ADIFF #### [address] [address] Creatinine [Mass/Vol] 0.74 mg/dL Normal 0.55-1.02 [facility] ([place]) Comment on above: Performed By: #### C HOL, CBC, GFR, A1C, ANEU, CMP, ADIFF #### [address] [address] Electrolyte Balance 10.0 mEq/L Normal 4.0-15.0 [facility] ([place]) Comment on above: Performed By: #### C HOL, CBC, GFR, A1C, ANEU, CMP, ADIFF #### [address] [address] Globulin 4.1 G/dL Normal [facility] ([place]) Comment on above: Performed By: #### C HOL, CBC, GFR, A1C, ANEU, CMP, ADIFF #### [address] [address] Glucose [Mass/Vol] 229 mg/dL High 70-105 [facility] ([place]) Comment on above: Performed By: #### C HOL, CBC, GFR, A1C, ANEU, CMP, ADIFF #### [address] [address] Potassium [Moles/Vol] 4.3 mmol/L Normal 3.5-5.1 [facility] ([place]) Comment on above: Performed By: #### C HOL, CBC, GFR, A1C, ANEU, CMP, ADIFF #### [address] [address] Sodium [Moles/Vol] 137 mmol/L Normal 136-145 [facility] ([place]) Comment on above: Performed By: #### C HOL, CBC, GFR, A1C, ANEU, CMP, ADIFF #### [address] [address] Total Protein 7.6 G/dL Normal 6.4-8.2 [facility] ([place]) Comment on above: Performed By: #### C HOL, CBC, GFR, A1C, ANEU, CMP, ADIFF #### [address] [address] Urea nitrogen [Mass/Vol] 5 mg/dL Low 7-18 [facility] ([place]) Comment on above: Performed By: #### C HOL, CBC, GFR, A1C, ANEU, CMP, ADIFF #### [place] [id number] [place] [id number] LABORATORYOrdered By: SYSTEM SYSTEM on 03-30-2023 Albumin BCP dye [Mass/Vol] 3.5 G/dL Invalid Interpretation Code 3.5 - 5.0 G/dL AO ADM SS Albumin/Globulin [Mass ratio] 0.9 {ratio} Invalid Interpretation Code 1.1 - 2.5 ratio AO ADM SS ALP [Catalytic activity/Vol] 204 U/L Invalid Interpretation Code 40 - 135 U/L AO ADM SS ALT With P-5'-P [Catalytic activity/Vol] 274 U/L Invalid Interpretation Code 14 - 59 U/L AO ADM SS AST With P-5'-P [Catalytic activity/Vol] 420 U/L Invalid Interpretation Code 10 - 40 U/L AO ADM SS Bilirubin [Mass/Vol] 0.6 mg/dL Invalid Interpretation Code 0.2 - 1.0 mg/dL AO ADM SS Calcium [Mass/Vol] 9.0 mg/dL Invalid Interpretation Code 8.4 - 10.2 mg/dL AO ADM SS Chloride [Moles/Vol] 100 mmol/L Invalid Interpretation Code 98 - 107 mmol/L AO ADM SS Cholesterol [Mass/Vol] 234 mg/dL Invalid Interpretation Code 0 - 200 mg/dL AO ADM SS CO2 [Moles/Vol] 27 mmol/L Invalid Interpretation Code 22 - 29 mmol/L AO ADM SS Creatinine [Mass/Vol] 0.74 mg/dL Invalid Interpretation Code 0.55 - 1.02 mg/dL AO ADM SS Electrolyte Balance 10.0 mEq/L Invalid Interpretation Code 4.0 - 15.0 mEq/L AO ADM SS GFR/1.73 sq M.predicted among blacks MDRD (S/P/Bld) [Vol rate/Area] 105 ml/min/1.73sqm Invalid Interpretation Code AO Chemistry S GFR/1.73 sq M.predicted among non-blacks MDRD (S/P/Bld) [Vol rate/Area] 86 ml/min/1.73sqm Invalid Interpretation Code AO Chemistry S Globulin 4.1 G/dL Invalid Interpretation Code AO ADM SS Glucose [Mass/Vol] 229 mg/dL Invalid Interpretation Code 70 - 105 mg/dL AO ADM SS HbA1c (Bld) [Mass fraction] 10.2 % Invalid Interpretation Code 4.3 - 6.4 % AO ADM SS Potassium [Moles/Vol] 4.3 mmol/L Invalid Interpretation Code 3.5 - 5.1 mmol/L AO ADM SS Protein [Mass/Vol] 7.6 G/dL Invalid Interpretation Code 6.4 - 8.2 G/dL AO ADM SS Sodium [Moles/Vol] 137 mmol/L Invalid Interpretation Code 136 - 145 mmol/L AO ADM SS Urea nitrogen [Mass/Vol] 5 mg/dL Invalid Interpretation Code 7 - 18 mg/dL AO ADM SS Urea nitrogen/Creatinine [Mass ratio] 7 ratio Invalid Interpretation Code 7 - 27 ratio AO ADM SS LABORATORYOrdered By: Cheyenne Pang on 03-30-2023 Basophil, Absolute 0.0 103/mcL Invalid Interpretation Code 0.0 - 0.2 10^3/mcL AO Workflow SS Basophils/100 WBC (Bld) 0.7 % Invalid Interpretation Code 0.0 - 2.5 % AO Workflow SS Eosinophil, Absolute 0.1 103/mcL Invalid Interpretation Code 0.0 - 0.4 10^3/mcL AO Workflow SS Eosinophils/100 WBC (Bld) 2.1 % Invalid Interpretation Code 0.0 - 7.0 % AO Workflow SS Erythrocyte distribution width (RBC) [Ratio] 16.6 % Invalid Interpretation Code 11.5 - 14.5 % AO Workflow SS Hematocrit (Bld) [Volume fraction] 33.1 % Invalid Interpretation Code 37.0 - 47.0 % AO Workflow SS Hemoglobin (Bld) [Mass/Vol] 10.7 G/dL Invalid Interpretation Code 12.0 - 16.0 G/dL AO Workflow SS Lymphocyte, Absolute 1.7 103/mcL Invalid Interpretation Code 0.8 - 3.9 10^3/mcL AO Workflow SS Lymphocytes/100 WBC (Bld) 28.6 % Invalid Interpretation Code 10.0 - 50.0 % AO Workflow SS MCH (RBC) [Entitic mass] 24.9 pg Invalid Interpretation Code 27.0 - 31.2 pg AO Workflow SS MCHC 32.4 G/dL Invalid Interpretation Code 33.0 - 37.0 G/dL AO Workflow SS MCV (RBC) [Entitic vol] 76.8 fL Invalid Interpretation Code 80.0 - 94.0 fL AO Workflow SS Monocyte, Absolute 0.4 103/mcL Invalid Interpretation Code 0.2 - 1.0 10^3/mcL AO Workflow SS Monocytes/100 WBC (Bld) 7.7 % Invalid Interpretation Code 1.7 - 13.0 % AO Workflow SS Neutrophil, Absolute 3.5 103/mcL Invalid Interpretation Code 2.9 - 6.2 10^3/mcL AO Workflow SS Neutrophils/100 WBC (Bld) 60.9 % Invalid Interpretation Code 37.0 - 80.0 % AO Workflow SS Platelet mean volume (Bld) [Entitic vol] 7.7 fL Invalid Interpretation Code 7.4 - 10.4 fL AO Workflow SS Platelets (Bld) [#/Vol] 275 103/mcL Invalid Interpretation Code 130 - 400 10^3/mcL AO Workflow SS RBC (Bld) [#/Vol] 4.31 106/mcL Invalid Interpretation Code 4.20 - 5.40 10^6/mcL AO Workflow SS WBC (Bld) [#/Vol] 5.8 103/mcL Invalid Interpretation Code 4.6 - 10.8 10^3/mcL AO Workflow SS Encounters Encounter Date Encounter Type Care Provider Facility Start: 05-20-2025 ambulatory Yola Vasyl [facility] Start: 04-15-2025 ambulatory Jaron Hubbard Facility :[facility] Start: 01-16-2025 End: 01-16-2025 ambulatory Yola Aurora Facility:[facility] Start: 09-25-2024 End: 09-25-2024 ambulatory Yola Vasyl Facility:[facility] Start: 09-25-2024 End: 09-25-2024 ambulatory Yola Aurora Facility:[facility] Start: 06-12-2024 End: 06-12-2024 ambulatory Jimenez WOOTEN Facility:[facility] Start: 06-12-2024 End: 06-12-2024 ambulatory Jaron Hubbard Facility:[facility] Start: 03-30-2023 End: 03-31-2023 ambulatory JARON HUBBARD DO Facility:[facility] Start: 03-30-2023 End: 03-30-2023 Patient encounter procedure JARON HUBBARD DO [facility] Payers Date Payer Category Payer Unknown [id number] 2024 Self-pay 2023 Unknown [id number] 1980 Unknown [id number] 2.16.8 [id number] Unknown [id number] 2.16.8 [id number] Unknown [id number] 2.16.8 [id number] Unknown [id number] 2.16.8 [id number] Unknown [id number] 2.16.8 [id number] Unknown [id number] 2.16.8 [id number] Unknown [id number] 2.16.8 [id number] Unknown [id number] 2.16.8 [id number] Unknown [id number] 2.16.8 [id number] Unknown [id number] 2.16.8 [id number] Social History Date Type Detail Facility Tobacco smoking status No Smoking Status Entered [facility] Sex Assigned At Female [facility] Evaluation + Plan note Note Date & Type Note Facility Evaluation + Plan note No data available for this section [facility] Discharge instructions Note Date & Type Note Facility Hospital Discharge instructions No data available for this section [facility] Progress note Note Date & Type Note Facility Progress note No data available for this section [facility] Summary Purpose Family History No Family History Records FoundNo Family History Records Found Advance Directives No Advanced Directives Records FoundNo Advanced Directives Records Found Additional Source Comments INFORMATION SOURCE (unrecogn ized section and content) DATE CREATED AUTHOR 04/08/2023 [facility] ([place]) DATE CREATED AUTHOR AUTHOR'S ANA HUTTON 04/13/2025 [facility] FOR RECORDS PERTAINING TO PATIENTS WHO ARE OR HAVE BEEN ENROLLED IN A CHEMICAL DEPENDENCY/SUBSTANCEABUSE PROGRAM, SOME INFORMATION MAY BE OMITTED. This clinical summary was aggregated from multiple sources. Caution should be exercised in using it in the provision of clinical care. This summary normalizes information from multiple sources, and as a consequence, information in this document may materially change the coding, format and clinical context of patient data. In addition, data may be omitted in some cases. CLINICAL DECISIONS SHOULD BE BASED ON THE PRIMARY CLINICAL RECORDS. [facility] [facility]. provides no warranty or guarantee of the accuracy or completeness of information in this document.
[2025-04-14 12:46] LABS: Cholesterol 163 mg/dL (<=200); High Density Lipoprotein 66 mg/dL; Low Density Lipoprotein Calc. 73 mg/dL; Triglycerides 119 mg/dL; Very Low Density Lipoprotein 24 mg/dL (5-40); cholesterol:hdl ratio screen 2.46
== END | disposition home or self-care (01) ==
LOC: BIMLAB 08:24
PROVIDERS: PCP Internal Medicine; Referring Provider Nurse Practitioner Family; Visit Provider Nurse Practitioner Family
DX: E78.2 Mixed hyperlipidemia (principal)
CPT/HCPCS: 36415; 80061